=== PATIENT | female | born 1950 | race Caucasian/White ===

== ENCOUNTER → 2016-11-10 | Outpatient (CLI) | payer OTHER ==
[~2016-11-10] MED LIST: ALLEGRA PO; ALLEGRA180 MG PO; ALPRAZOLAM PO; AMIODARONE PO; ASPIRIN ENTERI325 M1 PO; ASPIRIN PO; ASPIRIN81 M1 PO; ASPIRIN81 M2 PO; ATENOLOL PO; BENADRYL25 MG PO; CARDIZEM CD180 M1 PO; CELEBREX PO; CLARITIN10 M3 PO; COLACE PO; COZAAR100 MG PO; CRESTOR PO; DARVOCET-N 1001 TAB PO; DIOVAN HCT 160/1 TAB PO; DULOXETINE HCL60 MG PO; DYAZIDE 37.5/251 CAP PO; EXCEDRIN MIGRAI1 TA1 PO; GABAPENTIN400 M1 PO; HYDROCHLOROTHIA25 MG PO; IBUPROFEN800 MG PO; IMDUR30 MG PO; KLOR-CON PO; LEVAQUIN PO; LEXAPRO PO; LOPRESSOR PO; LOSARTAN POTASS50 MG PO; METOPROLOL TAR25 MG PO; METRONIDAZOLE PO; NITROGYLCERIN SUBLINGUAL; NORCO 10/3251 TAB PO; NORVASC PO; PANTOPRAZOLE SO20 MG PO; PRILOSEC PO; PRILOSEC20 MG PO; SIMVASTATIN10 MG PO; SULFAMETHOXAZOL1 TA4 PO; SYNTHROID0.05 MG PO; VICODIN ES 7.51 EACH PO; VITAMIN D1000 UNI1 PO; VITAMIN D50000 UNIT PO; ZOCOR PO; [UNRECOGNIZED DRUG - OTHER] PO
--- NOTE | ~2016-11-10 | MY11 ---
[facility] A Service of [facility] RADIOLOGY TEXT RESULTS PATIENT: SULAIMAN FRANK LOCATION: [facility] : 48 UNIT #: [id number] AGE: [address]: Darian Irby MD SEX: F ORDER DR: [id number] [facility] [address] [place], [place] [address] [id number] O MR#: [id number] Acc #: [id number] NAME: SULAIMAN FRANK : 1950 SEX: F STUDY DATE/TIME: 11/10/2016 11:17 UNIT: [facility] ROOM: STUDY DESCRIPTION: MY Mammogram Screening Dig Rush Attending Physician: Darian Irby M.D. Referring Physician: Darian Irby M.D. Ordering Physician: Darian Irby M.D. Primary Care Physician: Darian Irby M.D. MEDICAL IMAGING REPORT This report is preliminary unless electronic signature is present EXAM Bilateral digital screening mammogram with CAD HISTORY Routine screening. No current complaints. No family history of breast cancer. COMPARISON 11/04/2015, 10/14/2014, 08/20/2013. FINDINGS MLO and CC digital views of each breast were obtained. The exam was reviewed with an FDA-approved CAD device. There are scattered fibroglandular densities present. There are no masses or suspicious calcifications identified. IMPRESSION No change. No evidence of malignancy. Patients over the age of 40 are entered into a reminder system with target due date for the next mammogram. A result letter will also be sent to the patient. BIRADS: 1 Negative Dictated by... Bobby Douglas M.D. THIS IS AN ELECTRONICALLY VERIFIED REPORT Bobby Douglas M.D. at 11/11/2016 9:38 AM NATALIA/kelly [facility] A Service [facility] RADIOLOGY TEXT RESULTS PATIENT: SULAIMAN FRANK LOCATION: [facility] : 48 UNIT #: [id number] AGE: [address]: Darian Irby MD SEX: F ORDER DR: TD: 11/10/2016 14:07 JOB #: [id number] MEDICAL IMAGING REPORT Page 1 of 1 COPY
== END | disposition home or self-care (01) ==
LOC: CWCC 10:56
DX: Z12.31 Encounter for screening mammogram for malignant neoplasm of breast (principal)
CPT/HCPCS: G0202